=== PATIENT | male | born 1965 | race Caucasian/White ===

== ENCOUNTER → 2018-03-27 | Outpatient (CLI) | payer OTHER ==
[~2018-03-27] MED LIST: AMLO5; ASPI81CH; CHLO25B; CYCL10; DILT30; GEMF600; Glimepiride4 MG; LIRA0.6P; Lotensin40 MG; METF500C; METO50ER; NAPR500ERA; OMEG1CAP30; POTCIT10; SITA100T2
[2018-03-31 17:08] LABS: FREE TESTOSTERONE(DIRECT) 8.8 pg/mL (7.2-24.0); TESTOSTERONE, SERUM 245 ng/dL (264-916)
== END ==
LOC: LAB SHORT 17:30 → LAB 17:30
PROVIDERS: Hospitalist
DX: E11.42 Type 2 diabetes mellitus with diabetic polyneuropathy (principal); R68.82 Decreased libido
CPT/HCPCS: 83036; 84402; 84403

== ENCOUNTER → 2018-09-29 | Outpatient (CLI) | payer BC | END | disposition home or self-care (01) | LOC: PLD 08:52 → LAB SHORT 08:52 | DX: D04.62 Carcinoma in situ of skin of left upper limb, including shoulder (principal) | CPT/HCPCS: 88305 ==

== ENCOUNTER → 2019-04-13 | Outpatient (CLI) | payer BC | END | disposition home or self-care (01) | LOC: LAB 13:47 → LAB SHORT 13:47 | DX: E78.5 Hyperlipidemia, unspecified (principal) | CPT/HCPCS: 82043 ==

== ENCOUNTER → 2020-12-12 | Outpatient (CLI) | payer BC | END | disposition home or self-care (01) | LOC: LAB 09:00 → LAB SHORT 09:00 | DX: E08.33 Diabetes mellitus due to underlying condition with moderate nonproliferative diabetic retinopathy (principal); E78.5 Hyperlipidemia, unspecified | CPT/HCPCS: 82043 ==

== ENCOUNTER → 2023-10-21 | Outpatient (CLI) | payer OTHER ==
[2023-10-21 14:48] LABS: Creatinine, Urine Random 75.6 mg/dL (27.00-270.00); Microalb/Creat Ratio UR, Rand 94.048 mg/g (0.000-30.000); Microalbumin, Random Urine 71.1 mg/L (0.000-20.000)
[2023-10-22 17:14] LABS: CALCIUM, SERUM 9.3 mg/dL (8.7-10.2); CREATININE, SERUM 1.12 mg/dL (0.76-1.27); POTASSIUM, SERUM 4.1 mmol/L (3.5-5.2)
== END ==
LOC: LAB 08:55 → LAB SHORT 08:55
PROVIDERS: Hospitalist
DX: E11.65 Type 2 diabetes mellitus with hyperglycemia (principal)
CPT/HCPCS: 80048; 82043; 82570

== ENCOUNTER → 2025-08-23 | Outpatient (CLI) | payer OTHER ==
[2025-08-23 15:49] LABS: Creatinine, Urine Random 33.8 mg/dL (27.00-270.00); Microalbumin, Random Urine 60.5 mg/L (0.000-20.000)
== END ==
LOC: LAB 09:30 → LAB SHORT 09:30
PROVIDERS: Hospitalist
DX: E11.65 Type 2 diabetes mellitus with hyperglycemia (principal)
CPT/HCPCS: 82043; 82570